=== PATIENT | female | born 1935 | race Caucasian/White ===

== ENCOUNTER 2018-07-31 07:19 | Emergency (ER) | payer MEDICARE, BC ==
[~2018-07-31] VITALS: Ht 170.2 cm; Wt 74.5 kg
[2018-07-31 07:29] VITALS: TEMP 96.8
[2018-07-31 07:45] LABS: BASO % 0.7 % (0.0-2.0); EOS # 0.1 (0.0-0.7); EOS % 3.4 % (0-4.0); GRAN # 2.4 (1.4-6.5); HEMATOCRIT 42.7 % (37.0-47.0); HEMOGLOBIN 13.9 g/dl (12.5-16.0); LYMPH # 1.1 (1.2-3.4); LYMPH % 25.9 % (20.0-51.0); MEAN CELL VOLUME 88 fl (80.0-100.0); MEAN CORPUSCULAR HEMOGLOBIN 29 pg (27.0-31.0); MEAN CORPUSCULAR HGB CONC 33 g/dl (33.0-37.0); MEAN PLATELET VOLUME 9.5 fl (7.4-10.4); MONO # 0.4 (0.1-0.6); MONO % 10.8 % (1.7-9.3); PLATELET COUNT 152 K/mm3 (130-400); RED BLOOD COUNT 4.87 M/mm3 (4.10-5.30); REDCELL DISTRIBUTION WIDTH-CV 13.1 % (11.5-14.5)
[2018-07-31 07:57] LABS: ALANINE AMINOTRANSFERASE 22 U/L (9-52); ALKALINE PHOSPHATASE 83 U/L (50-136); ANION GAP 9 mmol/L (7-16); AST,SGOT 29 U/L (15-37); BILIRUBIN,TOTAL 0.4 mg/dL (0.0-1.0); BLOOD UREA NITROGEN 20 mg/dL (7-17); CALCIUM 9.6 mg/dL (8.4-10.2); CARBON DIOXIDE 26 mmol/L (22-30); CHLORIDE 106 mmol/L (98-107); CREATININE, serum 0.86 mg/dL (0.52-1.25); GLUCOSE 93 mg/dL (74-106); PHOSPHOROUS 2.9 mg/dL (2.5-4.5); POTASSIUM 3.9 mmol/L (3.4-5.0); SODIUM 140 mmol/L (137-145); TOTAL PROTEIN 7.4 gm/dL (6.4-8.2)
[2018-07-31] MEDS ORDERED: LOPRESSOR 550 MG/TAB PO (08:07)
[2018-07-31] MEDS ORDERED: LEVOXYL0.075 MG PO (08:08)
[2018-07-31] MEDS ORDERED: ZOCOR 40MG40 MG PO (08:09)
[2018-07-31] MEDS ORDERED: ASPIRIN 81M81 MG/TA2 PO (08:09)
[2018-07-31] MEDS ORDERED: XALATAN EYE DROPS OD (08:09)
[2018-07-31] MEDS ORDERED: OSCAL 500 TAB500 MG PO (08:10)
[2018-07-31] MEDS ORDERED: FISH OIL 1000MG1 CAP PO (08:11)
[2018-07-31] MEDS ORDERED: VITAMIN D31000 IU PO (08:11)
[2018-07-31 08:12] LABS: TROPONIN-I < 0.012 ng/mL (0.000-0.035)
[2018-07-31 10:14] LABS: COLLECTION METHOD CLEAN CATCH
[2018-07-31 10:23] LABS: MUCOUS Present /lpf; PH 8 (5-8); SQUAMOUS EPITHELIAL 0-2 /hpf; URINE APPEARANCE Clear; URINE BACTERIA Rare /hpf; URINE BILIRUBIN Negative (NEGATIVE); URINE BLOOD Negative (NEGATIVE); URINE COLOR Straw; URINE GLUCOSE Negative (NEGATIVE); URINE KETONE Negative (NEGATIVE); URINE LEUKOCYTE ESTERASE Trace (NEGATIVE); URINE NITRATE Negative (NEGATIVE); URINE PROTEIN(semi-quant) Negative (NEGATIVE); URINE RBC 0-2 /hpf; URINE UROBILINOGEN Negative (NEGATIVE)
[2018-07-31 11:00] VITALS: BP 146/67; PULSE 60
== END 2018-07-31 11:30 | disposition home or self-care (01) ==
LOC: COL.ER 07:19
PROVIDERS: Emergency Medicine
DX: R00.2 Palpitations (principal); E03.9 Hypothyroidism, unspecified; Z95.0 Presence of cardiac pacemaker; Z79.82 Long term (current) use of aspirin
CPT/HCPCS: J7030